=== PATIENT | female | born 1990 | race Caucasian/White ===

== ENCOUNTER 2020-08-30 20:12 | Observation (INO) | payer MEDICAID, SELFPAY ==
[~2020-08-30] VITALS: Ht 152.4 cm; Wt 68.0 kg
[2020-08-30 20:44] VITALS: BP 106/64
== END 2020-08-30 23:05 | disposition home or self-care (01) ==
LOC: MLD 20:12
PROVIDERS: ADMIT Obstetrics & Gynecology; ATTEND Obstetrics & Gynecology
DX: O46.93 Antepartum hemorrhage, unspecified, third trimester (principal); Z3A.37 37 weeks gestation of pregnancy
CPT/HCPCS: 59025; 81000; G0378

== ENCOUNTER 2020-08-31 13:01 | Observation (INO) | payer MEDICAID ==
[~2020-08-31] VITALS: Ht 154.9 cm; Wt 68.0 kg
== END 2020-08-31 16:20 | disposition home or self-care (01) ==
LOC: MLD 13:01
PROVIDERS: ADMIT Obstetrics & Gynecology; ATTEND Obstetrics & Gynecology
DX: O46.93 Antepartum hemorrhage, unspecified, third trimester (principal); O26.893 Other specified pregnancy related conditions, third trimester; R10.30 Lower abdominal pain, unspecified; Z3A.37 37 weeks gestation of pregnancy
CPT/HCPCS: 59025; 76805; G0378

== ENCOUNTER 2020-09-11 04:09 | Inpatient (IN) | payer MEDICAID ==
[~2020-09-11] VITALS: Ht 154.9 cm; Wt 68.0 kg
[2020-09-11] MEDS ORDERED: LACTATED RINGERS 1,000 ML IV SCH (04:25)
[2020-09-11] MEDS ORDERED: fentaNYL citrate 0.05 MG/ML VIAL IVP PRN (04:25)
[2020-09-11] MEDS ORDERED: ONDANSETRON 4 MG/2 ML VIAL IVP PRN (04:25)
[2020-09-11] MEDS ORDERED: OXYTOCIN 20 UNITS in LACTATED RINGERS 1,000 ML IV SCH (04:25)
[2020-09-11] MEDS ORDERED: OXYTOCIN 20 UNITS/LR PREMIX 1,000 ML IV ONE (04:31)
[2020-09-11] MEDS ORDERED: LIDOCAINE 1% 500 MG/50 ML VIAL ONE (04:48)
[2020-09-11] MEDS ORDERED: OXYTOCIN 10 UNITS/ML VIAL ONE (04:55)
[2020-09-11] MEDS ORDERED: OXYTOCIN 10 UNITS/ML VIAL IM ONE (05:10)
[2020-09-11] MEDS ORDERED: METHYLERGONOVINE 0.2 MG/ML AMP IM PRN (05:15)
[2020-09-11] MEDS ORDERED: OXYTOCIN 10 UNITS/ML VIAL IM PRN (05:15)
[2020-09-11] MEDS ORDERED: METHYLERGONOVINE 0.2 MG TAB PO PRN (05:15)
[2020-09-11] MEDS ORDERED: bisacodyL 10 MG SUPP RC PRN (05:15)
[2020-09-11] MEDS ORDERED: IBUPROFEN 800 MG TAB PO PRN (05:15)
[2020-09-11] MEDS ORDERED: TEMAZEPAM 15 MG CAP PO PRN (05:15)
[2020-09-11] MEDS ORDERED: BENZOCAINE/MENTHOL 20%-0.5% 60 GM CAN TP PRN (05:15)
[2020-09-11] MEDS ORDERED: oxyCODONE/APAP 5/325 MG 1 TAB TAB PO PRN (05:15)
[2020-09-11 05:27] LABS: BASOPHILS # (AUTO) 0.1 K/uL (0.00-0.22); BASOPHILS % (AUTO) 0.5 % (0.0-2.0); EOSINOPHILS % (AUTO) 0.2 % (0.0-4.0); HEMATOCRIT 33.5 % (36-48); HEMOGLOBIN 11.1 g/dL (12.0-16.0); LYMPHOCYTES # (AUTO) 2.3 K/uL (2.5-16.5); LYMPHOCYTES % (AUTO) 17.1 % (20.5-51.1); MEAN CORPUSCULAR HEMOGLOBIN 32 pg (27-31); MEAN CORPUSCULAR HGB CONC 33 g/dL (33-37); MEAN CORPUSCULAR VOLUME 95.1 fL (80-94); MONOCYTES # (AUTO) 0.4 K/uL (0.8-1.0); MONOCYTES % (AUTO) 2.9 % (1.7-9.3); NEUTROPHILS # (AUTO) 10.5 K/uL (1.8-7.7); NEUTROPHILS % (AUTO) 79.3 % (42.2-75.2); PLATELET COUNT (AUTO) 206 K/uL (140-450); RED BLOOD CELL COUNT(AUTO) 3.52 MIL/uL (4.20-5.40); RED CELL DISTRIBUTION WIDTH 13.8 % (11.6-13.7); WHITE BLOOD COUNT (AUTO) 13.3 K/uL (4.8-10.8)
[2020-09-11 06:04] LABS: ALBUMIN 2.9 g/dL (3.4-5.0); ANION GAP 17.7 (8-16); CARBON DIOXIDE 22.3 mmol/L (21-32); CREATININE 0.6 mg/dL (0.6-1.3); TOTAL BILIRUBIN 0.2 mg/dL (0.0-1.0)
[2020-09-11] MEDS: HYDROcodone/APAP 5/325 MG 1 TAB TAB PO PRN ×2 (06:25→15:12)
[2020-09-11] MEDS ORDERED: AMMONIA AROMATIC 1 INHL INH ONE (08:47)
[2020-09-11 09:41] LABS: APPEARANCE,URINE HAZY (CLEAR); BILIRUBIN,URINE NEGATIVE (NEGATIVE); BLOOD, URINE 3+ (NEGATIVE); COLOR,URINE RED (YELLOW); LEUKOCYTE ESTERASE ,URINE 1+ (NEGATIVE); NITRITE, URINE POSITIVE (NEGATIVE); UGLUCOSE NEGATIVE (NEGATIVE)
[2020-09-11 09:46] LABS: RBC,URINE TOO NUMEROUS TO COUN /HPF (0-5)
[2020-09-11 09:48] LABS: WBC,URINE 0-5 /HPF (0-5)
[2020-09-11] MEDS ORDERED: DOCUSATE SOD/SENNA 50/8.6 MG 1 TAB PO SCH (21:00)
--- NOTE | 2020-09-12 06:52 | NUR ---
PATIENT HAS BEEN SCREENED AND CATEGORIZED LOW NUTRITION RISK. PATIENT WILL BE SEEN WITHIN 7 DAYS OF ADMISSION. 09/18/20 KAJAL MARISCAL MS, RDN
[2020-09-12 07:29] LABS: HEMATOCRIT 26.7 % (36-48); HEMOGLOBIN 8.9 g/dL (12.0-16.0)
== END 2020-09-12 13:45 | disposition home or self-care (01) | DRG 560 ==
LOC: MLD 04:09 → MFCC 07:40 → OBSVTOIN 16:28
PROVIDERS: ADMIT Obstetrics & Gynecology; ATTEND Obstetrics & Gynecology
PROC: 10D07Z6 Extraction of Products of Conception, Vacuum, Via Natural or Artificial Opening (ICD-10-PCS; principal; 2020-09-11)
PROC: 0HQ9XZZ Repair Perineum Skin, External Approach (ICD-10-PCS; 2020-09-11)
DX: O70.0 First degree perineal laceration during delivery (principal); O76 Abnormality in fetal heart rate and rhythm complicating labor and delivery; O66.5 Attempted application of vacuum extractor and forceps; Z3A.39 39 weeks gestation of pregnancy; Z37.0 Single live birth; Z20.828 Contact with and (suspected) exposure to other viral communicable diseases; O69.1XX0 Labor and delivery complicated by cord around neck, with compression, not applicable or unspecified; R71.0 Precipitous drop in hematocrit
CPT/HCPCS: G0378 ×12; 36415; 59409; 80053; 81001; 85018; 85025; 86592; 86886; 86900; 86901; 87086; J2001; J2590